=== PATIENT | female | born 1990 | race American Indian/Alaskan Native ===

== ENCOUNTER 2018-06-23 20:11 | Emergency (ER) | payer MEDICAID ==
[2018-06-23] MEDS ORDERED: IBUPROFEN PO ONE (22:17)
[2018-06-23] MEDS ORDERED: LIDOCAINE VISCOUS 2% MM STA (22:17)
[2018-06-23] MEDS ORDERED: BICILLIN L-A IM ONE (22:17)
--- NOTE | 2018-06-23 22:21 | Emergency Department Report ---
ED General Adult HPI - General Chief complaint: Upper Respiratory Infection Stated complaint: NV WEAKNESS HEADACHE Time Seen by Provider: 06/23/18 22:00 Source: patient, RN notes reviewed, old records reviewed Mode of arrival: Ambulatory Limitations: No Limitations - History of Present Illness Initial comments: This is a 27-year-old female who reports that she is not . The patient reports that she works in a [facility] [employer]. She reports recently being exposed to strep. She presents to the emergency room with a complaint of sore throat, subjective fevers, chills, myalgias, body aches 2 days. Minimal relief with [id number] acetaminophen. No cough, no abdominal pain, no chest pain, no urinary symptoms, no travel outside the country. No other complaints. -: Gradual, days(s) Location: mouth, neck, left, right, upper extremity, lower extremity Radiation: non-radiation Severity scale (0 -10): 7 Quality: aching Consistency: intermittent Improves with: rest Worsens with: movement Associated Symptoms: fever/chills, loss of appetite. denies: confusion, chest pain, cough, diaphoresis, headaches, malaise, nausea/vomiting, rash, seizure, shortness of breath, syncope, weakness - Related Data Previous Rx's Medication Instructions Recorded Last Taken Type Acetaminophen [Tylenol Arthritis] 650 mg PO Q6HR PRN #30 tablet.er 06/23/18 Unknown Rx Ibuprofen [Motrin] 600 mg PO Q8H PRN #30 tablet 06/23/18 Unknown Rx Allergies Allergy/AdvReac Type Severity Reaction Status Date / Time No Known Allergies Allergy Unverified 03/12/18 06:13 ED Review of Systems ROS: Stated complaint: NV WEAKNESS HEADACHE Other details as noted in HPI Constitutional: chills Eyes: denies: vision change ENT: throat pain, congestion. denies: epistaxis Respiratory: denies: cough Cardiovascular: denies: chest pain Gastrointestinal: denies: abdominal pain Musculoskeletal: arthralgia, myalgia. denies: as per HPI Skin: denies: lesions Neurological: denies: headache ED Past Medical Hx - Past Medical History Previous Medical History?: No - Surgical History Past Surgical History?: No - Social History Smoking Status: Never Smoker Substance Use Type: None - Medications Home Medications: Home Medications Medication Instructions Recorded Confirmed Last Taken Type Acetaminophen [Tylenol Arthritis] 650 mg PO Q6HR PRN #30 tablet.er 06/23/18 Unknown Rx Ibuprofen [Motrin] 600 mg PO Q8H PRN #30 tablet 06/23/18 Unknown Rx ED Physical Exam - General Limitations: No Limitations General appearance: alert, in no apparent distress - Head Head exam: Present: atraumatic, normocephalic - Eye Eye exam: Present: normal appearance, EOMI. Absent: nystagmus - ENT ENT exam: Present: normal exam, normal orophraynx (exudates noted on the bilateral tonsillar pillars. Uvula is midline. The patient is speaking in full sentences. There is no stridor.), mucous membranes moist, TM's normal bilaterally, normal external ear exam, other (there is no sinus tenderness) - Neck Neck exam: Present: normal inspection, full ROM, lymphadenopathy. Absent: tenderness, meningismus - Respiratory Respiratory exam: Present: normal lung sounds bilaterally. Absent: respiratory distress - Cardiovascular Cardiovascular Exam: Present: regular rate, normal rhythm, normal heart sounds. Absent: bradycardia, tachycardia, irregular rhythm, systolic murmur, diastolic murmur, rubs, gallop - GI/Abdominal GI/Abdominal exam: Present: soft. Absent: distended, tenderness, guarding, rebound, rigid, pulsatile mass - Extremities Exam Extremities exam: Present: normal inspection, full ROM, other (2+ pulses noted in the bilateral upper, lower extremities. Compartments soft. No long bony tenderness. The pelvis is stable.). Absent: pedal edema, joint swelling, calf tenderness - Back Exam Back exam: Present: normal inspection, full ROM. Absent: tenderness, CVA tenderness (R), paraspinal tenderness, vertebral tenderness - Neurological Exam Neurological exam: Present: alert, CN II-XII intact, other (Extraocular movements intact. Tongue midline. No facial droop. Facial sensation intact to light touch in the V1, V2, V3 distribution bilaterally. 5 and 5 strength in 4 extremities.. Sensation is intact to light touch in 4 extremities.). Absent: motor sensory deficit - Psychiatric Psychiatric exam: Present: normal affect, normal mood - Skin Skin exam: Present: warm, dry, intact, normal color. Absent: rash ED Course Vital Signs 06/23/18 20:16 Temperature 98.8 F Pulse Rate 108 H Respiratory 18 Rate Blood Pressure 111/77 O2 Sat by Pulse 99 Oximetry ED Medical Decision Making - Lab Data Vital Signs 06/23/18 20:16 Temperature 98.8 F Pulse Rate 108 H Respiratory 18 Rate Blood Pressure 111/77 O2 Sat by Pulse 99 Oximetry Lab Results 06/23/18 Range/Units Unknown Group A Strep Rapid Positive A (Negative) - Medical Decision Making Differential diagnosis, including not limited to: Viral syndrome, strep pharyngitis Assessment and plan: 27-year-old female with symptoms and physical exam suggestive of strep pharyngitis, with a positive strep screen. Her tachycardia has resolved on my exam. She is speaking in full sentences and tolerating liqu id feeds. She will be treated with Bicillin and discharged home with appropriate pain medication. She'll need to follow up with a primary care doctor for clearance to return to work. Critical care attestation.: If time is entered above; I have spent that time in minutes in the direct care of this critically ill patient, excluding procedure time. ED Disposition Clinical Impression: Pharyngitis Disposition: DC-01 TO HOME OR SELFCARE Is pt being admited?: No Does the pt Need Aspirin: No Condition: Good Instructions: Strep Throat (ED) Additional Instructions: Take the medications as needed/directed. Wash hands thoroughly after coughing, sneezing, and before, after handling food. Cultures was sent today, and results will be available in the next 3-5 days. Have a primary care doctor contact the medical records department to obtain culture results. Follow up with a primary care doctor for clearance to return to work. Return to the emergency room right away with new, worsening or different symptoms. Referrals: ARON SPEARS [Primary Care Provider] - 3-5 Days [facility] [Provider Group] - 3-5 Days Forms: Work/School Release Form(ED)
[2018-06-23 22:42] VITALS: BP 119/68
== END 2018-06-23 22:41 | disposition home or self-care (01) ==
LOC: ED 20:11
DX: J02.9 Acute pharyngitis, unspecified (principal)
CPT/HCPCS: 87430; 96372; 99283; J0561

== ENCOUNTER 2018-06-27 09:37 | Emergency (ER) | payer MEDICAID ==
--- NOTE | 2018-06-27 11:09 | Emergency Department Report ---
ED General Adult HPI - General Chief complaint: Sore Throat Stated complaint: SORE THROAT/EAR ACHE Time Seen by Provider: 06/27/18 10:03 Source: patient Mode of arrival: Ambulatory Limitations: No Limitations - History of Present Illness Initial comments: Patient is a 27-year-old asthmatic female presented with sore throat. Patient states she was here 4 days ago was given a Bicillin shot had tested positive for strep. Patient states symptoms have actually worsened and she is still having significant pain despite pain management. Patient has some subjective chills without objective fever. Patient denies any nausea vomiting, or congestion at this time. Severity scale (0 -10): 5 - Related Data Previous Rx's Medication Instructions Recorded Last Taken Type Acetaminophen [Tylenol Arthritis] 650 mg PO Q6HR PRN #30 tablet.er 06/23/18 Unknown Rx Ibuprofen [Motrin] 600 mg PO Q8H PRN #30 tablet 06/23/18 Unknown Rx Azithromycin [Zithromax Z-BILLY] 250 mg PO DAILY #6 tablet 06/27/18 Unknown Rx predniSONE [Deltasone] 20 mg PO QDAY #5 tab 06/27/18 Unknown Rx Allergies Allergy/AdvReac Type Severity Reaction Status Date / Time No Known Allergies Allergy Verified 06/27/18 09:45 ED Review of Systems ROS: Stated complaint: SORE THROAT/EAR ACHE Other details as noted in HPI Comment: All other systems reviewed and negative ED Past Medical Hx - Past Medical History Previous Medical History?: No - Surgical History Past Surgical History?: No - Social History Smoking Status: Current Some Day Smoker Substance Use Type: None - Medications Home Medications: Home Medications Medication Instructions Recorded Confirmed Last Taken Type Acetaminophen [Tylenol Arthritis] 650 mg PO Q6HR PRN #30 tablet.er 06/23/18 Unknown Rx Ibuprofen [Motrin] 600 mg PO Q8H PRN #30 tablet 06/23/18 Unknown Rx Azithromycin [Zithromax Z-BILLY] 250 mg PO DAILY #6 tablet 06/27/18 Unknown Rx predniSONE [Deltasone] 20 mg PO QDAY #5 tab 06/27/18 Unknown Rx ED Physical Exam - General Limitations: No Limitations General appearance: alert, in no apparent distress - Head Head exam: Present: atraumatic, normocephalic - Eye Eye exam: Present: normal appearance - ENT ENT exam: Present: mucous membranes moist. Absent: normal orophraynx (mild pharyngeal erythema without exudate) - Neck Neck exam: Present: normal inspection - Respiratory Respiratory exam: Present: normal lung sounds bilaterally. Absent: respiratory distress - Cardiovascular Cardiovascular Exam: Present: regular rate, normal rhythm. Absent: systolic murmur, diastolic murmur, rubs, gallop - GI/Abdominal GI/Abdominal exam: Present: soft, normal bowel sounds - Extremities Exam Extremities exam: Present: normal inspection - Back Exam Back exam: Present: normal inspection - Neurological Exam Neurological exam: Present: alert, oriented X3 - Psychiatric Psychiatric exam: Present: normal affect, normal mood - Skin Skin exam: Present: warm, dry, intact, normal color. Absent: rash ED Course Vital Signs 06/27/18 09:45 Temperature 97.7 F Pulse Rate 75 Respiratory 18 Rate Blood Pressure 119/66 [Right] O2 Sat by Pulse 100 Oximetry ED Medical Decision Making - Medical Decision Making Patient likely with strep is resistant to penicillin. Patient will be started on azithromycin and the patient be discharged home. Critical care attestation.: If time is entered above; I have spent that time in minutes in the direct care of this critically ill patient, excluding procedure time. ED Disposition Clinical Impression: Strep pharyngitis Disposition: DC-01 TO HOME OR SELFCARE Is pt being admited?: No Does the pt Need Aspirin: No Condition: Stable Referrals: ARON SPEARS MD [Primary Care Provider] - 3-5 Days Time of Disposition: 11:09
== END 2018-06-27 11:40 | disposition home or self-care (01) ==
LOC: ED 09:37
CPT/HCPCS: 99282

== ENCOUNTER 2019-06-11 12:04 | Emergency (ER) | payer SELFPAY ==
[2019-06-11 12:43] VITALS: BP 125/71
--- NOTE | 2019-06-11 12:54 | Emergency Department Report ---
Chief Complaint: Urogenital-Female Stated Complaint: UTI - HPI History of Present Illness: 28 yo F presents to ED with complaint of UTI. Pt reports lower abdominal pain, urinary frequency, dysuria x 2 days. Denies vag discharge, vag bleeding, hematuria, fever, N/V. Pt reports same symptoms in the past. Believes she has a UTI. - ROS Review of Systems: Comment: All other systems reviewed and negative Constitutional: denies: chills, fever Gastrointestinal: reports abdominal pain. Denies: nausea, vomiting Genitourinary: reports frequency, dysuria. Denies: hematuria, vaginal bleeding, vaginal discharge - Exam Vital Signs: Vital Signs 06/11/19 06/11/19 12:09 12:43 Temperature 98.0 F 98.0 F Pulse Rate 90 91 H Respiratory 16 16 Rate Blood Pressure 125/71 125/71 O2 Sat by Pulse 98 98 Oximetry Physical Exam: - General Limitations: No Limitations General appearance: alert, in no apparent distress - Head Head exam: Present: atraumatic, normocephalic - Eye Eye exam: Present: normal appearance, EOMI - ENT ENT exam: Present: mucous membranes moist - Neck Neck exam: Present: normal inspection - Respiratory Respiratory exam: Absent: respiratory distress - Cardiovascular Cardiovascular Exam: Present: regular rate, normal rhythm - GI/Abdominal GI/Abdominal exam: Present: soft, tenderness (mild suprapubic). Absent: distended, guarging - Extremities Exam Extremities exam: Present: normal inspection - Back Exam Back exam: Absent: CVA tenderness - Neurological Exam Neurological exam: Present: alert, oriented X3 - Psychiatric Psychiatric exam: Present: normal affect, normal mood - Skin Skin exam: Present: warm, dry, intact, normal color MSE screening note: Focused history and physical exam performed. Due to findings the following was ordered: n/a 28 yo F w/ possible UTI. Reports urinary frequency, dysuria. Mild suprapubic tenderness on exam. CVA tenderness is absent. No N/V, pt tolerating PO. Vitals normal. Pt does not have an emergent medical condition at this time. Pt does have PCP that she can follow up with. Other outpt resources given. Return precautions given. ED Medical Decision Making - Medical Decision Making 28 yo F w/ possible UTI. No N/V, pt tolerating PO. Vitals normal. No CVA tenderness on exam. No emergent medical condition at this time. Pt does have PCP that she can follow up with. Other outpt resources given. Return precautions given. ED Disposition for MSE Clinical Impression: Urinary frequency Disposition: MED SCREENING EXAM-LEFT Is pt being admited?: No Condition: Stable Referrals: [facility] [Provider Group] - 3-5 Days [facility] [place] [Outside] - 3-5 Days ARON SPEARS MD [Staff Physician] - 3-5 Days [facility] [Referring] - 3-5 Days Time of Disposition: 12:51
== END 2019-06-11 13:20 | disposition left against medical advice (07) ==
LOC: ED 12:04
DX: R35.0 Frequency of micturition (principal)
CPT/HCPCS: 99282